=== PATIENT | male | born 1945 | race Caucasian/White ===

== ENCOUNTER 2019-12-12 06:03 | Inpatient (IN) | payer OTHER ==
[~2019-12-12 06:03] MED LIST: Buffered Lidocaine 1% SYRIN* 1 ML/SYRINGE INTRADERM ONE
--- OUTSIDE RECORDS SUMMARY | 2019-12-12 06:05 | XMS REPORT | Continuity of Care Document ---
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 Problems Active Problems Provider Date Localized, primary osteoarthritis of the Hua Ellis MD Onset: 08/26/2019 shoulder region Social History Type Date Description Comments Sex Unknown ETOH Use Occasionally consumes alcohol Tobacco Use Start: Unknown Patient has never smoked Recreational Drug Use Never Used Drugs Smoking Status Reviewed: 11/27/19 Patient has never smoked Exercise Type/Frequency Bikes 3 times a week Allergies, Adverse Reactions, Alerts Description No Known Drug Allergies Medications Active Medications SIG Qnty Indications Ordering Provider Date Fenofibrate 1 by mouth Unknown 145mg Tablets every day Folic Acid Unknown Captopril Unknown 50mg Tablets Levothyroxine Sodium 1 by mouth Unknown 25mcg every day Tablets Amlodipine Besylate 1 by mouth Unknown 10mg every day Tablets Metoprolol Succinate ER Unknown 100mg Tablets ER 24HR Immunizations Description No Information Available Vital Signs Date Vital Result Comment 11/27/2019 4:09pm Height 67 inches 5'7" Weight 202.00 lb with shoes Heart Rate 64 /min BP Systolic 126 mmHg Rue reg cuff BP Diastolic 98 mmHg Rue reg cuff BP Systolic Sitting 122 mmHg Lue reg cuff BP Diastolic Sitting 92 mmHg Lue reg cuff BP Systolic Standing 132 mmHg Lue reg cuff BP Diastolic Standing 88 mmHg Lue reg cuff Respiratory Rate 18 /min BMI (Body Mass Index) 31.6 kg/m2 11/11/2019 10:12am Height 67 inches 5'7" Weight 200.50 lb Heart Rate 74 /min BP Systolic 132 mmHg BP Diastolic 76 mmHg Respiratory Rate 14 /min Body Temperature 98.2 F BMI (Body Mass Index) 31.4 kg/m2 Results Description No Information Available Procedures Date Code Description Status 12/01/2019 32212 ECHO Transthoracic, Real-Time 2D With Doppler And Color Completed Flow 12/01/2019 95044 ECHO Transthoracic, Real-Time 2D With Doppler And Color Completed Flow 11/27/2019 91363 EKG Tracing & Interpretation Completed Medical Devices Description No Information Available Encounters Type Date Location Provider Dx Diagnosis Office Visit 11/27/2019 [facility] Claude Jansen Z01.810 Encounter for 4:40p Of Jerardo Garcia DO FACC preprocedural cardiovascular examination M19.012 Primary osteoarthritis, left shoulder I45.19 Other right bundle-branch block R94.31 Abnormal electrocardiogram [ECG] [EKG] R94.31 Abnormal electrocardiogram [ECG] [EKG] N18.9 Chronic kidney disease, unspecified I10 Essential (primary) hypertension E78.5 Hyperlipidemia, unspecified Office Visit 08/26/2019 Dakota Sequeira M19.012 Primary 10:00a [facility] osteoarthritis, left [place] shoulder Assessments Date Code Description Provider 12/01/2019 R94.31 Abnormal electrocardiogram [ECG] [EKG] Claude Garcia, DO FACC 12/01/2019 R94.31 Abnormal electrocardiogram [ECG] [EKG] [place] [facility] Schedule 11/27/2019 Z01.810 Encounter for preprocedural Claude Garcia DO FACC cardiovascular examination 11/27/2019 M19.012 Primary osteoarthritis, left shoulder Claude Garcia, DO FACC 11/27/2019 I45.19 Other right bundle-branch block Claude Garcia DO FACC 11/27/2019 R94.31 Abnormal electrocardiogram [ECG] [EKG] Claude Garcia, DO FACC 11/27/2019 R94.31 Abnormal electrocardiogram [ECG] [EKG] Claude Garcia, DO FACC 11/27/2019 N18.9 Chronic kidney disease, unspecified Claude Garcia, DO FACC 11/27/2019 I10 Essential (primary) hypertension Claude Garcia, DO FACC 11/27/2019 E78.5 Hyperlipidemia, unspecified Claude S. Garcia, DO FAC 11/11/2019 M19.012 Primary osteoarthritis, left shoulder Tera Ambrose MD 08/26/2019 M19.012 Primary osteoarthritis, left shoulder Hua Ellis MD Plan of Treatment Future Appointment(s):12/12/2019 7:30 am - Jennifer Jamison PA-C at [facility] at Fcwnev7612/25/2019 10:15 am - Tera Ambrose MD at [facility] at Mybjjn7612/12/2019 7:30 am - Tera Ambrose MD at [facility] at Rvgvvj4111/27/2019 - Claude Garcia DO FACCZ01.810 Encounter for preprocedural cardiovascular examinationFollow up:f/u prnM19.012 Primary osteoarthritis, left jvekxxxaR59.19 Other right bundle-branch welrvL76.31 Abnormal electrocardiogram [ECG] [EKG]N18.9 Chronic kidney disease, saqojrywgjcE50 Essential (primary) wlwpabpqewlgK65.5 Hyperlipidemia, unspecified Functional Status Description No Information Available Mental Status Description No Information Available Referrals Description No Information Available
--- OUTSIDE RECORDS SUMMARY | 2019-12-12 06:05 | XMS REPORT | Continuity of Care Document ---
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 Problems Active Problems Provider Date Localized, primary osteoarthritis of the Hua Ellis MD Onset: 08/26/2019 shoulder region Social History Type Date Description Comments Sex Unknown ETOH Use Occasionally consumes alcohol Tobacco Use Start: Unknown Patient has never smoked Smoking Status Reviewed: 11/11/19 Patient has never smoked Allergies, Adverse Reactions, Alerts Description No Known [...] Available Vital Signs Date Vital Result Comment 11/11/2019 10:12am Height 67 inches 5'7" Weight 200.50 lb Heart Rate 74 /min BP Systolic 132 mmHg BP Diastolic 76 mmHg Respiratory Rate 14 /min Body Temperature 98.2 F BMI (Body Mass Index) 31.4 kg/m2 08/26/2019 10:35am Height 67 inches 5'7" Weight 195.00 lb Heart Rate 60 /min BP Systolic 140 mmHg BP Diastolic 82 mmHg Respiratory Rate 18 /min Pain Level 5 BMI (Body Mass Index) 30.5 kg/m2 Results Description No Information Available Procedures Description No Information Available Medical Devices Description No Information Available Encounters Type Date Location Provider Dx Diagnosis Office Visit 08/26/2019 [facility] Hua Ellis, M19.012 Primary 10:00a at [place] MD osteoarthritis, left shoulder Assessments Date Code Description Provider 11/11/2019 M19.012 Primary osteoarthritis, left shoulder Tera Ambrose MD 08/26/2019 M19.012 Primary osteoarthritis, left shoulder Hua Ellis MD Plan of Treatment Future Appointment(s):12/12/2019 7:30 am - Jennifer Jamison PA-C at [facility] at Pjedme0712/25/2019 10:15 am - Tera Ambrose MD at [facility] at Eqhgky0512/12/2019 7:30 am - Tera Ambrose MD at [facility] at Hxawiz6111/11/2019 - Tera Ambrose, MDM19.012 Primary osteoarthritis, left shoulderFollow up:Follow up: 10-14 days post op Functional Status Description No Information Available Mental Status Description No Information Available Referrals Description No Information Available
--- OUTSIDE RECORDS SUMMARY | 2019-12-12 06:05 | XMS REPORT | Continuity of Care Document ---
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 Problems Active Problems Provider Date Localized, primary [...] Location Provider Dx Diagnosis Office Visit 08/26/2019 [facility] Hua Ellis, M19.012 Primary 10:00a at [place] MD osteoarthritis, left shoulder Assessments Date Code Description Provider 11/11/2019 M19.012 Primary osteoarthritis, left shoulder Tera Ambrose MD 08/26/2019 M19.012 Primary osteoarthritis, left shoulder Hua Ellis MD Plan of Treatment Future Appointment(s):12/25/2019 10:15 am - Tera Ambrose MD at [facility] at Lluzma8012/12/2019 7:30 am - Tera Ambrose MD at [facility] at Sianbv1111/11/2019 - Tera Ambrose, MDM19.012 Primary osteoarthritis, left shoulderNew Xrays:CT Extremity Upper Left Wo, Ordered: Follow up:Follow up: 10-14 days post op Functional Status Description No Information Available Mental Status Description No Information Available Referrals Description No Information Available
[2019-12-12] MEDS ORDERED: ceFAZolin 2 GM in NS PREMIX(*) 2 GM/100 ML BAG IVPB ONE (06:49)
[2019-12-12] MEDS ORDERED: Buffered Lidocaine 1% SYRIN* 1 ML/SYRINGE INTRADERM ONE (06:49)
[2019-12-12] MEDS ORDERED: ROPIVACAINE 5 MG/ML 30 ML BTL (0.5%) ONE (07:04)
[2019-12-12] MEDS: Lactated Ringers 1000 ML Bag* 1,000 ML IV SCH ×2 (07:13→14:00)
[2019-12-12] MEDS ORDERED: Ketorolac INJ* 30 MG/ML 1 ML VIAL ONE (07:15)
[2019-12-12] MEDS ORDERED: Propofol* 10 MG/ML 20 ML BTL ONE (07:15)
[2019-12-12] MEDS ORDERED: Ondansetron INJ* 2 MG/ML VIAL ONE (07:15)
[2019-12-12] MEDS ORDERED: Dexamethasone IV* 4 MG/ML 1 ML (4 MG) ONE ×2 (07:15)
[2019-12-12] MEDS ORDERED: fentaNYL* 50 MCG/ML 2 ML VIAL (100 MCG VIAL) ONE (07:16)
[2019-12-12] MEDS ORDERED: EPHEDrine (Pressors)* 50 MG/ML VIAL ONE (07:16)
[2019-12-12] MEDS ORDERED: Midazolam* 1 MG/ML 2 ML VIAL (2 MG) ONE (07:16)
[2019-12-12] MEDS ORDERED: Rocuronium* 10 MG/ML VIAL ONE ×3 (07:16→10:55)
[2019-12-12] MEDS ORDERED: Sevoflurane* BOTTLE ONE (07:32)
[2019-12-12] MEDS ORDERED: Clindamycin 900 MG/D5W BAG(*) 900 MG/50 ML BAG IVPB ONE (07:54)
[2019-12-12] MEDS ORDERED: Tranexamic Acid 1,000 MG in NS 0.9% 50 ML IV ONE (08:00)
[2019-12-12] MEDS ORDERED: Vancomycin(*) 1,000 MG VIAL ONE (09:12)
[2019-12-12] MEDS ORDERED: fentaNYL* 50 MCG/ML 2 ML VIAL (100 MCG VIAL) IV PRN (09:38)
[2019-12-12] MEDS ORDERED: Naloxone* 0.4 MG/ML 1 ML VIAL IV PRN (09:38)
[2019-12-12] MEDS ORDERED: Acetaminophen IV 1GM/100ML * 100 ML ONE (12:03)
[2019-12-12] MEDS ORDERED: Phenylephrine 40 MCG/ML SYRINGE ONE (12:03)
[2019-12-12] MEDS ORDERED: Sugammadex * 200 MG/2 ML VIAL IV PUSH ONE (12:09)
[2019-12-12] MEDS ORDERED: oxyCODONE TAB* 5 MG TAB PO PRN (12:58)
[2019-12-12] MEDS ORDERED: Polyethylene Glycol 3350* 17 GM PACKET PO PRN (12:58)
[2019-12-12] MEDS ORDERED: Ondansetron INJ* 2 MG/ML VIAL IV PRN (12:58)
[2019-12-12] MEDS ORDERED: diPHENhydraMINE IV* 50 MG/ML 1 ml VIAL (BENADRYL) IV PRN (12:58)
[2019-12-12] MEDS ORDERED: Cyclobenzaprine TAB* 10 MG PO PRN (12:58)
[2019-12-12] MEDS ORDERED: diPHENhydraMINE PO* 25 MG PO PRN (12:58)
[2019-12-12] MEDS ORDERED: traMADol TAB* 50 MG PO PRN (12:58)
[2019-12-12] MEDS ORDERED: Temazepam CAP* 15 MG PO PRN (12:58)
[2019-12-12] MEDS ORDERED: oxyCODONE/Acetamin 5/325 MG* TAB PO PRN ×2 (12:58)
[2019-12-12] MEDS ORDERED: Ondansetron ODT TAB* 4 MG PO PRN (12:58)
[2019-12-12] MEDS ORDERED: Magnesium Hydroxide LIQ* 30 ML UDC PO PRN (12:58)
[2019-12-12] MEDS ORDERED: Morphine INJ* 2 MG/ML 1 ML SYRINGE (TWO MG - NEW SYRINGE VERSION) IV PRN (12:58)
[2019-12-12] MEDS ORDERED: Lactated Ringers 1000 ML Bag* 1,000 ML IV SCH (13:00)
[2019-12-12] MEDS ORDERED: Clindamycin 600 MG/D5W BAG(*) 600 MG/50 ML BAG IV SCH (13:00)
[2019-12-12] MEDS: Clindamycin 600 MG/D5W BAG(*) 600 MG/50 ML BAG IV SCH (17:08)
[2019-12-12] MEDS: Captopril TAB* 25 MG PO SCH (20:03)
[2019-12-12] MEDS: Acetaminophen TAB* 325 MG PO SCH (20:03)
[2019-12-12] MEDS: Docusate CAP* 100 MG PO SCH (20:03)
[2019-12-13] MEDS: Clindamycin 600 MG/D5W BAG(*) 600 MG/50 ML BAG IV SCH ×2 (00:14→08:30)
[2019-12-13] MEDS: Acetaminophen TAB* 325 MG PO SCH ×2 (03:54→11:42)
[2019-12-13 05:55] LABS: Hematocrit 30 % (42-52); Hemoglobin 10.4 g/dL (14.0-18.0); Mean Platelet Volume 9.5 fL (7.4-10.4); Platelet Count 222 10^3/uL (150-450)
[2019-12-13] MEDS ORDERED: Levothyroxine TAB* 25 MCG TAB PO SCH (06:00)
[2019-12-13 06:10] LABS: BUN/Creatinine Ratio 25.9 (8-20); Calcium 8.5 mg/dL (8.6-10.3); EGFR African American 62.2 (>60); EGFR Non-African American 51.4 (>60); Potassium 4.2 mmol/L (3.5-5.0)
[2019-12-13 07:25] VITALS: BP 124/54
[2019-12-13] MEDS: Docusate CAP* 100 MG PO SCH (08:28)
[2019-12-13] MEDS: Captopril TAB* 25 MG PO SCH (08:29)
[2019-12-13] MEDS ORDERED: CMCS:Fenofibrate(NF) 145 MG TAB PO SCH (09:00)
[2019-12-13] MEDS ORDERED: ATENOLOL 100 MG PO SCH (09:00)
[2019-12-13] MEDS ORDERED: Vitamin THERAPEUTIC TAB PO SCH (09:00)
[2019-12-13] MEDS ORDERED: Metoprolol Succinate XL TAB* 100 MG PO SCH (09:00)
[2019-12-13] MEDS ORDERED: Folic Acid TAB* 1 MG PO SCH (09:00)
[2019-12-13] MEDS ORDERED: amLODIPine TAB* 5 MG PO SCH (09:00)
--- NOTE | 2019-12-13 09:00 | PN ---
Progress Note - Progress Note Date of Service: 12/13/19 SOAP: Subjective: Pt is doing well. Pain is controlled. Denies F/C, CP/SOB or N/T. Objective: PE- 74 y/o WDWN M NAD. A&Ox3 LUE- dressing c/d/i, active F/E of wrist able to make full fist, +2 radial pulse , SILT distally Vital Signs Temp Pulse Resp BP Pulse Ox 98.4 F 67 20 124/54 96 12/13/19 07:24 12/13/19 07:24 12/13/19 08:30 12/13/19 07:24 12/13/19 07:24 Laboratory Results - last 24 hr 12/13/19 12/13/19 05:01 05:01 Hgb 10.4 L Hct 30 L Plt Count 222 MPV 9.5 Sodium 136 Potassium 4.2 Chloride 107 Carbon Dioxide 23 Anion Gap 6 BUN 35 H Creatinine 1.35 H Est GFR ( Amer) 62.2 Est GFR (Non-Af Amer) 51.4 BUN/Creatinine Ratio 25.9 H Glucose 116 H Calcium 8.5 L Assessment: POD 1 S/P left total shoulder arthroplasty Plan: NWB LUW, remain in sling Tramadol and tylenol prn pain Plan DC to home today F/U Dr. Ambrose 10-14 days post op
--- NOTE | 2019-12-13 10:28 | DS ---
Orthopedic Discharge Summary - Discharge Summary Date of Admission:12/12/19 Date of Discharge: 12/13/19 Date of Surgery: 12/12/19 Attending Orthopedic Provider: Dr. Ambrose Pre-operative Diagnosis: Left shoulder osteoarthritis Operative Procedure: Left total shoulder arthroplasty Disposition of Patient:Home Home care vs Outpatient services: Outpatient services Condition of Patient: Stable Pain medication RX at discharge: Tramadol DVT prophylaxis RX at discharge: None needed History: RJ MARROQUIN is a 74 year old M with years of increasingly severe left shoulder pain. Patient has failed conservative management and has elected to undergo a left total shoulder replacement Hospital Course: RJ was admitted to [facility] on 12/12/19. Patient underwent a left total shoulder arthroplasty without complication followed by a brief recovery in PACU and transfer to the Short Stay Surgical Unit in stable condition. Our hospitalist service, physical therapy and occupational therapy also participated in this patients care. Post-op day 1: patient was alert and in no acute distress. Dressing was clean, dry and intact. Operative extremity wrist flexion and extension, sensation intact to light touch distally, 2+ radial. Patient was deemed to be medically and orthopedically stable for discharge. Physical therapy goals were met. Home Medications Medication Instructions Recorded Confirmed Type Multivitamin 1 tab PO BID 03/30/14 12/12/19 History Atenolol TAB* 100 mg PO QAM 10/12/14 12/12/19 History Captopril TAB* 50 mg PO BID 10/12/14 12/12/19 History Fenofibrate 145 mg PO QAM 10/12/14 12/12/19 History Aspirin 325 mg PO QAM 04/10/16 12/12/19 History Folic Acid TAB* [Folvite TAB*] 1 mg PO QAM 12/08/19 12/12/19 History Levothyroxine TAB* [Synthroid 25 25 mcg PO 0800 12/08/19 12/12/19 History MCG TAB*] Metoprolol Succinate 100 mg PO QAM 12/08/19 12/12/19 History Erin-3 Fatty Acids/Fish Oil [Fish 1 each PO QAM 12/08/19 12/12/19 History Oil 1,000 mg Softgel] Acetaminophen TAB* [Tylenol TAB*] 975 mg PO 0400,1200,2000 tab 12/13/19 Rx Cephalexin CAP* [Keflex CAP*] 500 mg PO TID 7 Days cap 12/13/19 Rx Docusate CAP* [Colace Cap*] 100 mg PO BID cap 12/13/19 Rx traMADol TAB* [Ultram*] 50 mg PO Q6HR PRN tab MDD 8 12/13/19 Rx Discharge Instructions following Orthopedic Surgery: Activity: * Non weight bearing of the left arm. No lifting pushing or pulling Remain in sling at all times except hygiene. Ok to do gentle ROM on elbow wrist and hand. No range of motion of shoulder Wound care: * OK to shower on post-op day 3, no bathing, swimming, or submerging wound. * Use gentle soap, pat dry. Cover with gauze and tape. Clean dressing daily until post op visit Call Orthopedic office for: * Increased drainage * Redness * Increased pain * Fever Go to ER with shortness of breath or chest pain. Diet: * Regular diet * Increase fluids and fiber to prevent constipation. * Continue to use stool softeners, call office if no bowel motion within 48 hours. Medications See Home Medication List in your packet for medications that you should take after discharge. Pain Control: Tramadol 50 mg tabs: take 1 tab for moderate pain and 2 tabs for every pain every 6 hours as needed. Max 8 per day. Hold for sedation, wean off as soon as pain allows. Ok to take aleve 220 mg 2 tab twice a day as needed for pain Ok to take tylenol 500 mg take 2 tabs every 8 hours as needed for pain Antibiotics are required prior to any dental work. Keflex 500 mg take 1 tab three times a day x 7 days, start 12/14 FOLLOW UP: Follow up with Dr. Ambrose Within 10-14 days, call for appointment Please call our office with any questions or concerns ([phone]) Rx sent to [facility] 12/13
[2019-12-13] MEDS ORDERED: Enoxaparin(*) 40 MG/0.4 ML SYR SUBCUT SCH (12:00)
--- NOTE | 2019-12-14 00:26 | OP ---
OPERATIVE REPORT: DATE OF OPERATION: 12/12/19 DATE OF : 41 SURGEON: Tera Ambrose MD. HYBRID POWERTRAIN DEVELOPMENT ENGINEER: LUPE Granda. A physician under water assistant was required for the length of the procedure for assistance with patient positioning, retraction, instrumentation and closure. ANESTHESIOLOGIST: Dr. Kalyan Haile. ANESTHESIA: General anesthesia, regional interscalene block anesthesia. PRE-OP DIAGNOSIS: Left shoulder severe glenohumeral joint osteoarthritis. POST-OP DIAGNOSIS: Left shoulder severe glenohumeral joint osteoarthritis. OPERATIVE PROCEDURE: 1. Left shoulder anatomic total shoulder arthroplasty. 2. Left shoulder open proximal biceps tenodesis. ANTIBIOTICS: Clindamycin 900 mg IV prior to skin incision. Vancomycin 1gm powder in subcutaneous tissue prior to closure. IV FLUIDS: 1800 cc crystalloid. URINE OUTPUT: 400 cc. ESTIMATED BLOOD LOSS: Approximately 200 cc. [id number] TIME: 197 minutes. SPECIMEN: Bone and cartilage, humeral head sent to pathology. IMPLANTS: Tornier Aequalis humeral head, 48 mm, high offset, height of 18 mm. Standard noncemented humeral stem, Ascend Flex, size 4A, angle 127.5 degrees. Glenoid from a same system, size medium with a 15-degree posterior augment. Palacos cement. COMPLICATIONS: None. ESTIMATED BLOOD LOSS: 200 cc. 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 The patient responded insufficiently to nonoperative management and opted for surgery. The [facility] I evaluated the patient preoperatively by CT scan. It showed severe glenohumeral joint osteoarthritis. There was sufficient bone remaining in the glenoid vault for a total shoulder arthroplasty, anatomic. There was no evidence of rotator cuff tendon tear or significant muscular atrophy by CT scan. I templated the case preoperatively for glenoid plan positioning using the [employer] navigation system. I discussed risks and potential complications of surgery with the patient including failure of hardware, need for revision surgery, bleeding, infection, nerve or blood vessel injury. I specifically discussed axillary nerve injury, injection, need for repeat surgeries. DESCRIPTION OF PROCEDURE: In preoperative holding, the patient signed a written consent. Operative extremity was marked in the preoperative holding. The patient underwent a regional interscalene nerve block by Anesthesia in preoperative holding. The patient was taken back to the operating room, placed supine on operating room table. Sedated and intubated. The patient was placed in an Rich headrest. The patient was converted into a lazy beach-chair position. The patient's neck and head were resting comfortably in place. I placed a small bump under the patient's scapula. I prepped and draped left upper extremity. Surgical time-out was performed. I covered all skin with Ioban, I should say, as part of the draping process. The patient was given clindamycin to appropriately cover P. acnes. Deltopectoral approach to the left shoulder utilized. I made a skin incision from just proximal to the coracoid process distal to the level of the deltoid insertion. I dissected down through the subcutaneous tissue. This procedure was notable for much bleeding in the subcutaneous tissue. This was surprising, but perhaps this patient tends towards bleeding. I used a Bovie electrocautery to stop all bleeding in the subcutaneous tissue. I dissected down to the deltopectoral interval. I took the cephalic vein medially. We preserved the cephalic vein nicely; however, some branches of the cephalic vein did bleed as the subcutaneous veins had bled. I used multiple Vicryl 3-0 sutures to tie off branches of the cephalic vein. We released subacromial and subdeltoid adhesions. I placed retractors. I removed clavipectoral fascia. I released some of the coracoacromial ligament. I released some of the pectoralis major tendon. I tied off the 3 sisters blood vessels with sutures and then cautery. I tenodesed my long head biceps tendon with 2 stitches using FiberWire #2 suture. I released biceps tendon sheath all the way to the glenoid and then released and removed long head biceps tendon proximal to my tenodesis. I performed a lesser tuberosity osteotomy and placed several traction stitches in the subscapularis. I performed some release of capsule off of the proximal humerus with external rotation. I dislocated the humeral head. I removed osteophytes with rongeur. I identified the transition from head to neck. Using free hand technique and oscillating saw, I removed the humeral head. On a back table, it was sized to be consistent with preoperative templating 52 mm. I next used a canal finder and then the broaches. I broached up to a size 3. I added a tissue protector plate. I next performed some additional capsular releases. I released the anterior capsule of the deep surface of the subscapularis. I felt the path of the axillary nerve while doing so. I next dislocated the humeral head posteriorly. I placed all the appropriate retractors. The patient's shoulder was noted to be surprisingly deep. Therefore, I took a very slow and cautious approach to debridement at this point. I released the labrum circumferentially off the glenoid. I released the capsule of the anterior glenoid and then the inferior glenoid. That gave me a more mobility. I was able to dislocate the humeral head fully posteriorly and visualize the glenoid nicely. I debrided some articular cartilage of the anterior most aspect of the glenoid. I placed my blueprint guide on the glenoid. I placed a central pin. I assessed the position of the pin and I decided that I preferred to have it slightly anteroinferior that is slightly anterior and inferior to its original location. I therefore replaced the pin. I used a Paleo reamer and then a Benito reamer set for the 15-degree posterior augment. I placed trial that fit nicely [id number] 100%. I next drilled all the appropriate holes. I confirmed that all my drill holes were unicortical, which was excellent news. We mixed Palacos cement and placed with a Jagdeep syringe into the 3 peripheral holes in the glenoid. I then placed my glenoid implant. I pressurized it until the cement hardened. I returned to humeral head. I broached up to a size 4. The size 4 component could not rotate at all, so I decided that was snugging outside the fit. I next trialed head sizes into size down to 48 mm head. I next placed 4 drill holes through the bicipital groove, then placed FiberWire #2 suture. Irrigation. I placed my final humeral implants. I should state that I trialed the shoulder with the humeral head trials prior to placing the final implants and found 50% posterior translation and 25% inferior translation with stress. I next repaired the lesser trochanteric osteotomy to proximal humerus with 4 simple stitches using FiberWire #2 suture. I closed the rotator cuff interval with multiple [id number] stitches using Vicryl 0 suture. Irrigation. I closed the deltopectoral interval with a running stitch using Ethibond 1 colored suture. I next placed a vancomycin 1 g powder in the wound. I next closed the subcutaneous tissue with a buried simple stitches using Vicryl 2-0 suture. I closed the subcuticular layer with a running stitch using Monocryl 3- 0 suture and I closed the skin with Dermabond. Adaptic was placed, followed by 4x4s, followed by Tegaderm. Sling and abduction pillow. Cooling unit. The patient was awakened, extubated, and transferred to the PACU. DISPOSITION: The patient was admitted overnight for pain control and physical therapy. The patient was to receive 1 dose of Lovenox anticoagulation as well. The patient received postoperative IV antibiotics. The patient was to be discharged home when the pain was well controlled and physical therapy had been performed. [id number] #: [id number] MTDD
== END 2019-12-13 12:00 | disposition home or self-care (01) | DRG 322 ==
LOC: AA 06:03 → SSU 14:05
PROVIDERS: ADMIT Orthopaedic Surgery; ATTEND Orthopaedic Surgery
PROC: 0RRK0JZ Replacement of Left Shoulder Joint with Synthetic Substitute, Open Approach (ICD-10-PCS; principal; 2019-12-12 08:30)
DX: M19.012 Primary osteoarthritis, left shoulder (principal); E78.5 Hyperlipidemia, unspecified; E03.9 Hypothyroidism, unspecified; L40.9 Psoriasis, unspecified; Z96.651 Presence of right artificial knee joint; I45.10 Unspecified right bundle-branch block; I12.9 Hypertensive chronic kidney disease with stage 1 through stage 4 chronic kidney disease, or unspecified chronic kidney disease; N18.9 Chronic kidney disease, unspecified; M25.712 Osteophyte, left shoulder; E78.00 Pure hypercholesterolemia, unspecified; Z79.82 Long term (current) use of aspirin; Z79.890 Hormone replacement therapy
CPT/HCPCS: 36415; 80048; 85014; 85018; 85049; 88304; 88311; A9270-GY; C1776; J0690; J1100; J1650; J1885; J2250; J2405; J2704; J2795; J3010; J3370